=== PATIENT | female | born 1975 | race African-American/Black ===

== ENCOUNTER 2017-09-24 04:29 | Emergency (ER) | payer OTHER ==
[2017-09-24 04:40] VITALS: BP 116/81
--- NOTE | 2017-09-24 05:34 | ER Document Report ---
ED General - General Mode of Arrival: Ambulatory Information source: Patient TRAVEL OUTSIDE OF THE [place] IN LAST 30 DAYS: No - General Chief Complaint: Shoulder Pain Stated Complaint: NECK AND SHOULDER PAIN Time Seen by Provider: 09/24/17 05:10 Notes: Patient is a 41 year old female who is currently 11 weeks with a history of carpal tunnel presents to the emergency department complaining of right sided pain onset 5 days ago worsening last night. Patient states the pain starts on the right side of her neck and goes into her right arm which she describes as sharp. Patient also expressed some concern for her . Patient denies abdominal pain, vomiting, chest pain, trouble breathing, any recent trauma or injury, numbness or weakness. Patient is current . (JORGE IGLESIAS) - Related Data Allergies/Adverse Reactions: No Known Allergies Allergy (Verified 09/24/17 04:40) Past Medical History - General Information source: Patient - Social History Smoking Status: Never Smoker Cigarette use (# per day): No Smoking Education Provided: No Frequency of alcohol use: None Drug Abuse: None Family History: Reviewed & Not Pertinent Review of Systems - Review of Systems Constitutional: No symptoms reported EENT: No symptoms reported Cardiovascular: No symptoms reported Respiratory: No symptoms reported Gastrointestinal: No symptoms reported Genitourinary: No symptoms reported Female Genitourinary: No symptoms reported Musculoskeletal: See HPI Skin: No symptoms reported Hematologic/Lymphatic: No symptoms reported Neurological/Psychological: No symptoms reported -: Yes All other systems reviewed and negative Physical Exam - Vital signs Vitals: Temp Pulse Resp BP Pulse Ox 98.5 F 89 18 116/81 99 09/24/17 04:32 09/24/17 04:32 09/24/17 04:32 09/24/17 04:32 09/24/17 04:32 - Notes Notes: GENERAL: Alert, interacts well. No acute distress. HEAD: Normocephalic, atraumatic. EYES: Pupils equal, round, and reactive to light. Extraocular movements intact. ENT: Oral mucosa moist, tongue midline. NECK: Full range of motion. Supple. Trachea midline. LUNGS: Clear to auscultation bilaterally, no wheezes, rales, or rhonchi. No respiratory distress. HEART: Regular rate and rhythm. No murmurs, gallops, or rubs. ABDOMEN: Soft, non-tender. Non-distended. Bowel sounds present in all 4 quadrants. Bedside ultrasound performed, intrauterine confirmed. EXTREMITIES: Tender to plaption to the right trapezius. Negative supraspinatus test. Moves all 4 extremities spontaneously. N NEUROLOGICAL: Alert and oriented x3. Normal speech. PSYCH: Normal affect, normal mood. SKIN: Warm, dry, normal turgor. No rashes or lesions noted. (JORGE IGLESIAS) No numbness tingling or weakness on the right upper extremity. No tingling with elevation of the upper extremities, negative Phalen's test. Full range of motion of the right upper extremity. (JASON MCCOY) Course - Re-evaluation Re-evalutation: 09/24/17 05:48 No sign of acute nerve impingement, no evidence of double crush syndrome. No evidence of cervical radiculopathy. Patient appears to have muscle spasm of the trapezius, this is reproducible on examination. Patient has no history of trauma. Patient will be started on Valium as a muscle relaxer and discharged to home. I do not suspect ectopic or ruptured ectopic or any other acute intra- abdominal process that would be causing right shoulder pain. Abdomen is nontender, bedside ultrasound shows a single intrauterine that is active with a normal heartbeat approximately 160 bpm. No free fluid, no fluid in the cul-de-sac. Discharged to home. (JASON MCCOY) - Vital Signs Vital signs: Temp Pulse Resp BP Pulse Ox 98.5 F 89 18 116/81 99 09/24/17 04:32 09/24/17 04:32 09/24/17 04:32 09/24/17 04:32 09/24/17 04:32 Discharge - Discharge Clinical Impression: Strain of cervical portion of right trapezius muscle, First trimester Condition: Stable Disposition: HOME, SELF-CARE Additional Instructions: Your pain appears to be coming from a muscle spasm in your neck. I have prescribed you a muscle relaxer called Valium. It can make you quite sleepy. Please do not take it while driving. Today the bedside ultrasound showed a healthy with no signs of bleeding. If you develop bleeding, pain in your abdomen, increasing pain in your neck, any chest pain or shortness of breath or still have significant pain in 3 days, please return to the ED. Prescriptions: Diazepam [Valium 5 mg Tablet] 5 mg PO QIDP PRN #7 tablet PRN Reason: Referrals: LAURA CARTER MD [COMMUNITY BASED STAFF] - Follow up in 3-5 days Scribe Attestation: 09/24/17 06:49 I personally performed the services described in the documentation, reviewed and edited the documentation which was dictated to the scribe in my presence, and it accurately records my words and actions. (JASON MCCOY) Scribe Documentation - Scribe Written by Pedro:: Pedro Monge, 09/24/2017 05:37 acting as scribe for :: Juan M
== END 2017-09-24 06:05 | disposition home or self-care (01) ==
LOC: ER 04:29
DX: O26.91 Pregnancy related conditions, unspecified, first trimester (principal); S16.1XXA Strain of muscle, fascia and tendon at neck level, initial encounter; M25.511 Pain in right shoulder; X58.XXXA Exposure to other specified factors, initial encounter; Z3A.11 11 weeks gestation of pregnancy
CPT/HCPCS: 99283

== ENCOUNTER 2018-04-01 14:26 | Outpatient (CLI) | payer OTHER ==
[2018-04-01] MEDS ORDERED: ACETAMINOPHEN 325 MG TABLET PO PRN (14:42)
[2018-04-01 15:18] LABS: HEMATOCRIT 37.4 % (36.0-47.0); HEMOGLOBIN 12.1 g/dL (12.0-15.5); MEAN CORPUSCULAR HEMOGLOBIN 25.4 pg (27.0-33.4); MEAN CORPUSCULAR HGB CONC 32.3 g/dL (32.0-36.0); MEAN CORPUSCULAR VOLUME 79 fl (80-97); PLATELET COUNT 180 10^3/uL (150-450); RED BLOOD COUNT 4.76 10^6/uL (3.72-5.28); WHITE BLOOD COUNT 9.3 10^3/uL (4.0-10.5)
--- NOTE | 2018-04-01 15:19 | Non Stress Test Report ---
Non Stress Test Datetime Report Generated by CPN: 04/01/2018 15:19 DEMOGRAPHIC Test Number: 1 EGA NST: 37.4 INDICATION Indication for Study: Ordered by Provider MONITORING Monitor Explained: Monitor Explained; Test Explained; Patient Verbalized Understanding Time on Monitor: 04/01/2018 11:01 Time off Monitor: 04/01/2018 15:14 NST Duration: 253 NST INTERVENTIONS NST Interventions: PO Hydration; Reposition Patient Physician Notified NST: NSilvana Henriquez, CNM BABY A: [id number] BABY A Movement : Present Contraction Frequency : 0 FHR Baseline : 125 Accelerations : 15X15 Decelerations : None Variability : Moderate 6-25bpm NST Review: Meets Criteria for Reactive NST NST Review and Verified By : Tiffanie Enriquezavagabi RN NST Results: Reactive NST REPORT Report Trigger: Send Report
[2018-04-01 15:40] LABS: ALANINE AMINOTRANSFERASE 18 U/L (9-52); ALBUMIN 3.4 g/dL (3.5-5.0); ALKALINE PHOSPHATASE 140 U/L (38-126); ANION GAP 11 (5-19); ASPARTATE AMINO TRANSFERASE 23 U/L (14-36); BILIRUBIN,DIRECT 0.2 mg/dL (0.0-0.4); BILIRUBIN,TOTAL 0.2 mg/dL (0.2-1.3); BLOOD UREA NITROGEN 7 mg/dL (7-20); CALCIUM 9.2 mg/dL (8.4-10.2); CARBON DIOXIDE 21 mmol/L (22-30); CHLORIDE 104 mmol/L (98-107); GLUCOSE 75 mg/dL (75-110); POTASSIUM 4.6 mmol/L (3.6-5.0); SODIUM 136.3 mmol/L (137-145); TOTAL PROTEIN 6.6 g/dL (6.3-8.2); URIC ACID 5.4 mg/dL (2.5-7.0)
[2018-04-01 15:50] LABS: APPEARANCE,URINE SLIGHTLY-CLOUDY; BILIRUBIN,URINE NEGATIVE (NEGATIVE); COLOR,URINE YELLOW; GLUCOSE, URINE NEGATIVE (NEGATIVE); KETONES,URINE NEGATIVE (NEGATIVE); LEUKOCYTE ESTERASE,URINE NEGATIVE (NEGATIVE); NITRITE,URINE NEGATIVE (NEGATIVE); PROTEIN,URINE NEGATIVE (NEGATIVE); URINE SPECIFIC GRAVITY 1.019; UROBILINOGEN,URINE NEGATIVE mg/dL (<2.0)
[2018-04-01 16:10] LABS: URINE AMPHETAMINES SCREEN NEGATIVE; URINE BARBITURATES SCREEN NEGATIVE; URINE BENZODIAZEPINES SCREEN NEGATIVE; URINE COCAINE SCREEN NEGATIVE; URINE MARIJUANA (THC) SCREEN NEGATIVE; URINE METHADONE SCREEN NEGATIVE; URINE PHENCYCLIDINE SCREEN NEGATIVE
[2018-04-01 16:14] LABS: UR PRO/CREAT RATIO RESULT 0.1 mg/mg (0.0-0.2); URINE CREATININE 135.3 mg/dL (15-278); URINE PROTEIN 7.6 mg/dL (<12)
== END 2018-04-01 16:16 | disposition home or self-care (01) ==
LOC: LC 14:26
PROVIDERS: ATTEND Student in an Organized Health Care Education/Training Program
PROC: 4A1HXCZ Monitoring of Products of Conception, Cardiac Rate, External Approach (ICD-10-PCS; principal; 2018-04-01)
DX: O14.93 Unspecified pre-eclampsia, third trimester (principal); Z3A.37 37 weeks gestation of pregnancy
CPT/HCPCS: 36415; 59025; 80053; 80307; 81001; 82570; 83615; 84156; 84550; 85027

== ENCOUNTER 2018-04-05 16:52 | Outpatient (CLI) | payer OTHER ==
--- NOTE | 2018-04-05 17:09 | L&D Progress Notes ---
PROGRESS NOTES Datetime Report Generated by CPN: 04/05/2018 17:09 PROGRESS NOTE Impression: Reassuring Heart Rate Procedures- Other: r/o GHTN Plan: Continue Present Management Vital Signs : Reviewed; Within Normal Limits Vital Signs Comments: Normal labs today. pt sent home and will do a 24 hour urine there. NST on Comment: Pt sent over from the office for GHTN work up. with hx of . Doing well today, no complaints, Cat 1 NST today. +FM. Will d/c home and pt to do a 24hour urine. Dr Almeida aware of pt status and agrees with plan of care. FETUS A Monitoring: External US FHR Category: Category I SIGNATURE SIGNATURE: [id number] SIGNATURE: [id number] Assignment: Hillary Almeida MD Signature: with User ID: [email or web address] : with User ID: [email or web address]
== END 2018-04-05 17:40 | disposition home or self-care (01) ==
LOC: LC 16:52
PROVIDERS: ATTEND Obstetrics & Gynecology
PROC: 4A1HXCZ Monitoring of Products of Conception, Cardiac Rate, External Approach (ICD-10-PCS; principal; 2018-04-05)
DX: Z34.93 Encounter for supervision of normal pregnancy, unspecified, third trimester (principal)
CPT/HCPCS: 59025

== ENCOUNTER 2018-04-09 10:30 | Outpatient (CLI) | payer OTHER ==
--- NOTE | 2018-04-09 10:37 | Non Stress Test Report ---
Non Stress Test Datetime Report Generated by CPN: 04/09/2018 10:36 DEMOGRAPHIC EGA NST: 38.1 INDICATION Indication for Study: Ordered by Provider MONITORING Monitor Explained: Monitor Explained; Test Explained; Patient Verbalized Understanding Monitor Explained: Monitor Explained; Test Explained; Patient Verbalized Understanding Time on Monitor: 04/05/2018 17:08 Time off Monitor: 04/05/2018 17:37 NST Duration: 29 NST INTERVENTIONS NST Interventions: PO Hydration; Reposition Patient NST Interventions: PO Hydration; Reposition Patient Physician Notified NST: Dr Bishnu BABY A: [id number] BABY A Movement : Present Contraction Frequency : none FHR Baseline : 130 Accelerations : 15X15 Decelerations : None Variability : Moderate 6-25bpm NST Review: Meets Criteria for Reactive NST NST Review and Verified By : Ashvin Stanton RN NST Results: Reactive NST REPORT Report Trigger: Send Report
[2018-04-09 12:30] LABS: ABSOLUTE EOSINOPHILS # (AUTO) 0.1 10^3/uL (0.0-0.6); ABSOLUTE LYMPHOCYTES (AUTO) 2.3 10^3/uL (0.5-4.7); ABSOLUTE MONOCYTES (AUTO) 0.9 10^3/uL (0.1-1.4); ABSOLUTE NEUT (AUTO) 6.9 10^3/uL (1.7-8.2); BASOPHILS % (AUTO) 0.1 % (0-2); EOSINOPHILS % (AUTO) 0.9 % (0-6); HEMATOCRIT 39.7 % (36.0-47.0); HEMOGLOBIN 12.8 g/dL (12.0-15.5); LYMPHOCYTES % (AUTO) 22.5 % (13-45); MEAN CORPUSCULAR HEMOGLOBIN 25.4 pg (27.0-33.4); MEAN CORPUSCULAR HGB CONC 32.3 g/dL (32.0-36.0); MEAN CORPUSCULAR VOLUME 79 fl (80-97); MONOCYTES % (AUTO) 8.9 % (3-13); PLATELET COUNT 194 10^3/uL (150-450); RED BLOOD COUNT 5.05 10^6/uL (3.72-5.28); RED CELL DISTRIBUTION WIDTH 17.4 % (11.5-14.0); SEGMENTED NEUTROPHILS % (AUTO) 67.6 % (42-78); TOTAL CELLS COUNTED % (AUTO) 100 %; WHITE BLOOD COUNT 10.2 10^3/uL (4.0-10.5)
[2018-04-09 12:36] LABS: APPEARANCE,URINE SLIGHTLY-CLOUDY; BILIRUBIN,URINE NEGATIVE (NEGATIVE); COLOR,URINE YELLOW; GLUCOSE, URINE NEGATIVE (NEGATIVE); KETONES,URINE NEGATIVE (NEGATIVE); LEUKOCYTE ESTERASE,URINE NEGATIVE (NEGATIVE); NITRITE,URINE NEGATIVE (NEGATIVE); PROTEIN,URINE NEGATIVE (NEGATIVE); URINE SPECIFIC GRAVITY 1.015; UROBILINOGEN,URINE NEGATIVE mg/dL (<2.0)
[2018-04-09 12:53] LABS: URINE AMPHETAMINES SCREEN NEGATIVE; URINE BARBITURATES SCREEN NEGATIVE; URINE BENZODIAZEPINES SCREEN NEGATIVE; URINE COCAINE SCREEN NEGATIVE; URINE MARIJUANA (THC) SCREEN NEGATIVE; URINE METHADONE SCREEN NEGATIVE; URINE PHENCYCLIDINE SCREEN NEGATIVE
[2018-04-09 12:58] LABS: ALANINE AMINOTRANSFERASE 21 U/L (9-52); ALBUMIN 3.5 g/dL (3.5-5.0); ALKALINE PHOSPHATASE 139 U/L (38-126); ANION GAP 10 (5-19); ASPARTATE AMINO TRANSFERASE 19 U/L (14-36); BILIRUBIN,DIRECT 0.2 mg/dL (0.0-0.4); BILIRUBIN,TOTAL 0.3 mg/dL (0.2-1.3); BLOOD UREA NITROGEN 9 mg/dL (7-20); CALCIUM 9.3 mg/dL (8.4-10.2); CARBON DIOXIDE 23 mmol/L (22-30); CHLORIDE 104 mmol/L (98-107); GLUCOSE 44 mg/dL (75-110); POTASSIUM 4.5 mmol/L (3.6-5.0); SODIUM 136.9 mmol/L (137-145); TOTAL PROTEIN 6.8 g/dL (6.3-8.2); URIC ACID 5.5 mg/dL (2.5-7.0)
[2018-04-09 13:02] LABS: UR PRO/CREAT RATIO RESULT 0.1 mg/mg (0.0-0.2); URINE CREATININE 114.2 mg/dL (15-278); URINE PROTEIN 11.3 mg/dL (<12)
[2018-04-09] MEDS ORDERED: ACETAMINOPHEN 325 MG TABLET PO PRN (13:55)
[2018-04-09] MEDS ORDERED: ACETAMINOPHEN 325 MG TABLET ONE (13:59)
== END 2018-04-09 14:52 | disposition home or self-care (01) ==
LOC: LC 10:30
PROVIDERS: ATTEND Student in an Organized Health Care Education/Training Program
PROC: 4A1HXCZ Monitoring of Products of Conception, Cardiac Rate, External Approach (ICD-10-PCS; principal; 2018-04-09)
DX: O13.3 Gestational [pregnancy-induced] hypertension without significant proteinuria, third trimester (principal); O09.523 Supervision of elderly multigravida, third trimester; Z3A.38 38 weeks gestation of pregnancy
CPT/HCPCS: 36415; 59025; 80053; 80307; 81001; 82570; 83615; 84156; 84550; 85025

== ENCOUNTER 2018-04-11 22:20 | Inpatient (IN) | payer OTHER ==
[2018-04-11] MEDS ORDERED: RINGERS SOLUTION,LACTATED 1,000 ML IV PRN (22:45)
[2018-04-11] MEDS ORDERED: DINOPROSTONE 10 MG VAGINAL INSERT.SR PV PRN (22:45)
[2018-04-11] MEDS ORDERED: MAG HYDROX/AL HYDROX/SIMETH SUSP 30 ML UDCUP PO PRN (22:46)
[2018-04-11] MEDS ORDERED: RINGERS SOLUTION,LACTATED 300 ML IV ONE (23:00)
[2018-04-11] MEDS ORDERED: ZOLPIDEM TARTRATE 5 MG TABLET PO ONE (23:00)
[2018-04-11 23:37] LABS: ABSOLUTE EOSINOPHILS # (AUTO) 0.1 10^3/uL (0.0-0.6); ABSOLUTE LYMPHOCYTES (AUTO) 2.9 10^3/uL (0.5-4.7); ABSOLUTE MONOCYTES (AUTO) 1.1 10^3/uL (0.1-1.4); ABSOLUTE NEUT (AUTO) 6.9 10^3/uL (1.7-8.2); BASOPHILS % (AUTO) 0.3 % (0-2); EOSINOPHILS % (AUTO) 0.8 % (0-6); HEMATOCRIT 37.5 % (36.0-47.0); HEMOGLOBIN 12.2 g/dL (12.0-15.5); LYMPHOCYTES % (AUTO) 26.1 % (13-45); MEAN CORPUSCULAR HEMOGLOBIN 25.6 pg (27.0-33.4); MEAN CORPUSCULAR HGB CONC 32.5 g/dL (32.0-36.0); MEAN CORPUSCULAR VOLUME 79 fl (80-97); PLATELET COUNT 181 10^3/uL (150-450); RED BLOOD COUNT 4.76 10^6/uL (3.72-5.28); SEGMENTED NEUTROPHILS % (AUTO) 62.8 % (42-78); TOTAL CELLS COUNTED % (AUTO) 100 %
[2018-04-11 23:41] LABS: APPEARANCE,URINE SLIGHTLY-CLOUDY; BILIRUBIN,URINE NEGATIVE (NEGATIVE); COLOR,URINE YELLOW; GLUCOSE, URINE NEGATIVE (NEGATIVE); KETONES,URINE NEGATIVE (NEGATIVE); LEUKOCYTE ESTERASE,URINE TRACE (NEGATIVE); NITRITE,URINE NEGATIVE (NEGATIVE); PROTEIN,URINE NEGATIVE (NEGATIVE); URINE SPECIFIC GRAVITY 1.009; UROBILINOGEN,URINE NEGATIVE mg/dL (<2.0)
[2018-04-11 23:50] LABS: ALANINE AMINOTRANSFERASE 19 U/L (9-52); ALBUMIN 3.3 g/dL (3.5-5.0); ALKALINE PHOSPHATASE 150 U/L (38-126); ANION GAP 9 (5-19); ASPARTATE AMINO TRANSFERASE 18 U/L (14-36); BILIRUBIN,DIRECT 0.1 mg/dL (0.0-0.4); BILIRUBIN,TOTAL 0.3 mg/dL (0.2-1.3); BLOOD UREA NITROGEN 9 mg/dL (7-20); CALCIUM 9.7 mg/dL (8.4-10.2); CARBON DIOXIDE 20 mmol/L (22-30); CHLORIDE 107 mmol/L (98-107); GLUCOSE 78 mg/dL (75-110); POTASSIUM 4.4 mmol/L (3.6-5.0); SODIUM 135.7 mmol/L (137-145); TOTAL PROTEIN 6.4 g/dL (6.3-8.2); URIC ACID 5.5 mg/dL (2.5-7.0)
[2018-04-12 00:02] LABS: URINE AMPHETAMINES SCREEN NEGATIVE; URINE BARBITURATES SCREEN NEGATIVE; URINE BENZODIAZEPINES SCREEN NEGATIVE; URINE COCAINE SCREEN NEGATIVE; URINE MARIJUANA (THC) SCREEN NEGATIVE; URINE METHADONE SCREEN NEGATIVE; URINE PHENCYCLIDINE SCREEN NEGATIVE
[2018-04-12 00:06] LABS: UR PRO/CREAT RATIO RESULT 0.2 mg/mg (0.0-0.2); URINE CREATININE 77.1 mg/dL (15-278); URINE PROTEIN 11.9 mg/dL (<12)
[2018-04-12] MEDS ORDERED: DINOPROSTONE 10 MG VAGINAL INSERT.SR ONE (00:14)
[2018-04-12] MEDS ORDERED: ACETAMINOPHEN 325 MG TABLET ONE ×2 (03:06→20:53)
[2018-04-12] MEDS: ACETAMINOPHEN 325 MG TABLET PO PRN (03:10)
--- NOTE | 2018-04-12 06:22 | Admission Physical ---
Datetime Report Generated by CPN: 04/12/2018 06:21 CURRENT ADMISSION Chief Complaint: Scheduled Induction of Labor Indication for Induction: Gestational HTN Admit Impression : Induction of Labor Admit Plan: Admit to Unit; Initiate Labor Induction Protocol ALLERGIES Medication Allergies: No Medication Allergies: No Known Allergies (04/11/2018) Latex: No Latex Allergies OBSTETRICAL HISTORY EDC: 04/18/2018 00:00 : 3 Para: 1 Term: 1 : 0 SAB: 1 IAB: 0 Ectopic: 0 Livin Cesareans: 0 VBACs: 0 Multiple Births: 0 Gestational Diabetes: No Rh Sensitization: No Incompetent Cervix: No DONNY: No Infertility: No ART Treatment: No Uterine Anomaly: No IUGR: No Hx Previous C/S: No Macrosomia: No Hx Loss/Stillborn: No PIH: Yes Hx : No Placenta Previa/Abruption: No Depression/PP Depression: No PTL/PROM: No Post Hemorrhage: No Current Procedures: Ultrasound; NST Obstetrical History Comments: G1-06/26/06 female G2-2014 SAB G3-Current SEE RECORDS Alcohol: No Marijuana : No Cocaine: No Other Illicit Drugs: No Cigarettes: Former Smoker. [id number] MEDICAL HISTORY Diabetes: No Blood Transfusion: No Pulmonary Disease (Asthma, TB): Yes Breast Disease: Yes Hypertension: No Certified Physician'S Assistant Surgery: No Heart Disease: No Hosp/Surgery: Yes Autoimmune Disorder: No Anesthetic Complications: No Kidney Disease: No Abnormal Pap Smear: No Neuro/Epilepsy: No Psychiatric Disorders: Yes Other Medical Diseases: No Hepatitis/Liver Disease: No Significant Family History: No Varicosities/Phlebitis: No Trauma/Violence : No Thyroid Dysfunction: No Medical History Comments: PTSD being treated; Anxiety; breast reduction; previous Vag ; depression; TB carier - treated INFECTIOUS HISTORY Gonorrhea: No Genital Herpes: No Chlamydia: No Tuberculosis: Yes Syphilis: No Hepatitis: No HIV/AIDS Exposure: No Rash or Viral Illness: No HPV: No Infectious History Comments: TB carrier - treated 2000 PHYSICAL EXAM General: Normal HEENT: Normal Neurologic: Normal Thyroid: Normal Heart: Normal Lungs: Normal Breast: Deferred Back: Normal Abdomen: Normal Genitourinary Exam: Normal Extremities: Normal DTRs: Normal Pelvic Type: Adequate Vital Signs: Reviewed VAGINAL EXAM Dilatation: 1 Effacement: 0 Station: -2 MEMBRANES Membranes: Intact FETUS A EGA: 39.1 Monitoring: External US FHR- Baseline: 140 Presentation: Vertex Admit Comment: Induction for AMA, Htn PLANS FOR LABOR AND DELIVERY Labor and Delivery: None Pain Management: Epidural Feeding Preference: Formula Benefit of Breast Feed Discussed: Yes Circumcision: N/A INFORMED CONSENT Signature: with User ID: [email or web address]
[2018-04-12] MEDS ORDERED: OXYTOCIN/NORMAL SALINE 20 UNIT/1,000 ML RTUINJ ONE ×2 (08:32→20:54)
[2018-04-12] MEDS: OXYTOCIN/NORMAL SALINE 20 UNIT/1,000 ML RTUINJ IV PRN ×3 (09:34→21:33)
[2018-04-12] MEDS ORDERED: FENTANYL CITRATE INJ/PF 100 MCG/2 ML AMPUL IV ONE (10:45)
[2018-04-12] MEDS ORDERED: FENTANYL CITRATE INJ/PF 100 MCG/2 ML AMPUL ONE ×2 (10:57→14:39)
[2018-04-12] MEDS ORDERED: FENTANYL/BUPIVACAINE/NS/PF 200 MCG/100 ML RTUINJ EPI ONE ×2 (13:52→23:13)
[2018-04-12] MEDS ORDERED: EPHEDRINE SULFATE INJ 50 MG/1 ML AMPULE ONE (13:52)
[2018-04-12] MEDS ORDERED: PHENYLEPHRINE HCL INJ/PF 10 MG/1 ML SDV ONE (13:54)
[2018-04-12] MEDS ORDERED: BUPIVACAINE HCL 0.5 % INJ/PF 30 ML SDV ONE (13:55)
[2018-04-12] MEDS ORDERED: LIDOCAINE 1% INJ-PF (10 MG/ML) 30 ML SDV ONE (20:54)
[2018-04-12] MEDS ORDERED: MISOPROSTOL 0.2 MG TABLET ONE (20:54)
[2018-04-12] MEDS ORDERED: ACETAMINOPHEN 325 MG TABLET PO ONE (22:00)
[2018-04-13] MEDS ORDERED: AMPICILLIN SOD INJ 2 GM VIAL ONE ×3 (01:05→12:45)
[2018-04-13] MEDS ORDERED: AMPICILLIN SOD INJ 2 GM VIAL IM ONE (01:30)
[2018-04-13] MEDS ORDERED: ACETAMINOPHEN 325 MG TABLET ONE ×3 (03:47→14:42)
[2018-04-13] MEDS ORDERED: ACETAMINOPHEN 325 MG TABLET PO ONE (04:15)
[2018-04-13] MEDS ORDERED: AMPICILLIN SOD INJ 2 GM VIAL IM SCH (06:00)
[2018-04-13] MEDS ORDERED: DEXTROSE 5%-LACTATED RINGERS 1,000 ML IV PRN (06:00)
[2018-04-13] MEDS ORDERED: OXYTOCIN/NORMAL SALINE 0 UNIT/0 ML RTUINJ ONE (08:01)
[2018-04-13] MEDS ORDERED: FENTANYL/BUPIVACAINE/NS/PF 200 MCG/100 ML RTUINJ EPI ONE (08:11)
[2018-04-13] MEDS: OXYTOCIN/NORMAL SALINE 20 UNIT/1,000 ML RTUINJ IV PRN (08:14)
[2018-04-13] MEDS: ZOLPIDEM TARTRATE 5 MG TABLET PO SCH (08:48)
[2018-04-13] MEDS ORDERED: ACETAMINOPHEN 325 MG TABLET PO PRN (08:52)
[2018-04-13] MEDS: ACETAMINOPHEN 325 MG TABLET PO PRN (09:08)
[2018-04-13] MEDS ORDERED: GENTAMICIN SULFATE 180 MG in DEXTROSE 5%-WATER 100 ML IV ONE (09:30)
--- NOTE | 2018-04-13 10:08 | L&D Progress Notes ---
PROGRESS NOTES Datetime Report Generated by CPN: 04/13/2018 10:08 PROGRESS NOTE Impression: Arrest of Dilatation/Descent Plan Other: resume pitocin, temp 100.2. plan on tylenol and start on gent Vital Signs : Reviewed Comment: clear/bloody fluid recheck remains 6 cm dilated ROT presentation resume pitocin tylenol for low grade temperature gentamicin - dose per pharmacy discussed with patient 6 cm dilation consideration for primary c section if arrest of dilation - patient agrees. VAGINAL EXAM Dilatation: 6 Dilatation: 1 Effacement: 80 Effacement: 0 Station: -2 Station: -2 MEMBRANES Pooling: Positive Membranes: Ruptured Membranes: Intact Amniotic Fluid Color: Bloody FETUS A FHR - Baseline: 145 Monitoring: External US Accelerations: 15X15 Decelerations: Variable FHR Category: Category I FHR Comments: overall reassuring : 39.2 : 39.0 Estimated Weight (gm): 3000 Presentation: Vertex SIGNATURE SIGNATURE: [id number];[id number];[id number] SIGNATURE: [id number];[id number];[id number] SIGNATURE: [id number];[id number] Signature: with User ID: [email or web address]
[2018-04-13] MEDS: AMPICILLIN SOD INJ 2 GM VIAL IV SCH ×2 (13:05→18:35)
[2018-04-13] MEDS ORDERED: ZOLPIDEM TARTRATE 5 MG TABLET PO PRN (14:22)
[2018-04-13] MEDS ORDERED: DIPHENHYDRAMINE HCL 25 MG CAPSULE PO PRN (14:22)
[2018-04-13] MEDS ORDERED: ACETAMINOPHEN 650 MG SUPP.RECT PR PRN (14:22)
[2018-04-13] MEDS ORDERED: PSEUDOEPHEDRINE HCL 30 MG TABLET PO PRN (14:22)
[2018-04-13] MEDS ORDERED: ACETAMINOPHEN WITH CODEINE #3 TABLET PO PRN (14:22)
[2018-04-13] MEDS ORDERED: OXYTOCIN/NORMAL SALINE 20 UNIT/1,000 ML RTUINJ IV PRN (14:22)
[2018-04-13] MEDS ORDERED: PROMETHAZINE HCL 25 MG SUPP.RECT PR PRN (14:22)
[2018-04-13] MEDS ORDERED: MEASLES,MUMPS&RUBELLA VACC/PF 0.5 ML VIAL SUBCUT PRN (14:22)
[2018-04-13] MEDS ORDERED: GLYCERIN/WITCH HAZEL LEAF 1 EACH MED..PAD TP PRN (14:22)
[2018-04-13] MEDS ORDERED: PROMETHAZINE HCL 25 MG TABLET PO PRN (14:22)
[2018-04-13] MEDS ORDERED: PROMETHAZINE HCL INJ 25 MG/1 ML VIAL IV PRN (14:22)
[2018-04-13] MEDS ORDERED: MAGNESIUM HYDROXIDE SUSP 30 ML UDCUP PO PRN (14:22)
[2018-04-13] MEDS ORDERED: NA PHOS,M-B/NA PHOS,DI-BA (ADULT) 133 ML ENEMA PR PRN (14:22)
[2018-04-13] MEDS ORDERED: DIPH/PERTUSS(ACELL)/TETANUS VAC/PF 0.5 ML SYR (>=10YO) IM PRN (14:22)
[2018-04-13] MEDS ORDERED: BENZOCAINE/MENTHOL AEROSOL SPRAY 56 ML TOP PRN (14:22)
[2018-04-13] MEDS ORDERED: DIBUCAINE 1% OINTMENT 28 GM TP PRN (14:22)
--- NOTE | 2018-04-13 14:28 | PDOC DELIVERY SUMMARY ---
Delivery Summary - Maternal Hx : III Hx Para: I Hx # Term Pregnancies: 0 Hx # Pregnancies: 1 Hx Total # of Abortions (Sponateous & Elective): 1 Number of Living Children: 1 MINESH: 04/18/18 Gestational Age: 39.2 Risk Factors: Induced HTN - Advanced maternal age. Intrapartum: Febrile Ruptured Membranes: SROM Time of Rupture: 14:10 Fluids: Meconium Stained - Delivery Labor: Induction Presentation: Vertex Heart Rate Monitoring: Externally Uterine Contraction Monitoring: External Pattern: Variable Decels Support Person Present: Yes Location: LD Placenta: Within Normal Limits Placenta Description: 3 vessel cord Number of Vessels (Cord): 3 Nuchal Cord: Yes - leg cord x 2 loose Delivery of Placenta Date: 04/13/18 Delivery of Placenta Time: 14:30 Estimated Blood Loss: 200 ml Delivery Quantitative Blood Loss (QBL): 200 Delivery QBL Comment: weight, apgars pending per resuscitation staff - please see delivery summary from - Medications Type of Anesthesia:: Epidural - Intrapartum Medications Intrapartum Medications: tylenol, ampicillin, gentamicin for maternal pyrexia, tachycradia, chorioamnionitis - Delivery Personnel MD: JUNIOR SUMNER
[2018-04-13] MEDS ORDERED: IBUPROFEN 800 MG TABLET ONE (14:42)
[2018-04-13 15:08] LABS: ARTERIAL BLOOD BASE EXCESS -6.4 mmol/L; ARTERIAL BLOOD H2CO3 1.68 mmol/L (1.05-1.35); ARTERIAL BLOOD HCO3 22.1 mmol/L (20-26); ARTERIAL BLOOD O2 SATURATION 15.7 % (94-98); ARTERIAL BLOOD PCO2 55.9 mmHg (35-45); ARTERIAL BLOOD PH 7.21 (7.35-7.45); ARTERIAL BLOOD TOTAL CO2 23.8 mmol/L (21-25)
[2018-04-13 15:10] LABS: ARTERIAL BLOOD FIO2 CORDGAS
[2018-04-13 15:11] LABS: ARTERIAL BLOOD PO2 15.9 mmHg (80-100)
--- NOTE | 2018-04-13 15:30 | Warning Signs in Babies ---
VOD Warning Signs Datetime Report Generated by [facility]: 04/13/2018 15:30 VOD#[id number] -Warning Signs in Babies: Viewed with Parent(s)/Family (04/01/2018 14:41:Magi Glynn RN)
--- NOTE | 2018-04-13 17:17 | Delivery Summary ---
Del Sum A-C Datetime Report Generated by CPN: 04/13/2018 17:16 DELIVERY PERSONNEL DELIVERY PERSONNEL: [id number] Delivery Doctor:: Estela Parmar MD Labor and Delivery Nurse:: Magi Glynn RNdirector of head start Nurse:: Leyda Figueroa RN Multicraft Operator/PCAT INSTRUCTOR: Kathleen Mukherjee Additional Personnel: : Carmita Jeronimo RN MATERNAL INFORMATION Delivery Anesthesia: Epidural Medications After Delivery: Pitocin Bolus-Please Comment Estimated Blood Loss (ml): 200 Maternal Complications: Chorioamnionitis Other Maternal Complications: Maternal pyrexia, tachycardia. Meconium stained fluid. LABOR SUMMARY EDC: 04/18/2018 00:00 No. Babies in Womb: 1 Attempted: No Labor Anesthesia: Epidural LABOR INFORMATION Reason for Induction: Gestational Hypertension; Other Reason for Induction- Other: Advanced maternal age Onset of Labor: 04/12/2018 20:48 Complete Dilatation: 04/13/2018 13:40 Cervical Ripening Agents: Cervidil Other Ripening Agents: n/a Oxytocin: Induction Group B Beta Strep: Negative Antibiotics # of Doses: 4 Antibiotics Time of Last Dose: 1305 Name of Antibiotic Given: ampicillin and gentamicin Steroids Given: None Reason Steroids Not Administered: Not Applicable MEMBRANES Membranes Rupture Method: Artificial Rupture of Membranes: 04/12/2018 16:10 Length of Rupture (hr): 22.02 Amniotic Fluid Color: Clear Amniotic Fluid Amount: Scant Amniotic Fluid Odor: None STAGES OF LABOR Stage 1 hr: 16 Stage 1 min: 52 Stage 2 hr: 0 Stage 2 min: 31 Stage 3 hr: 0 Stage 3 min: 4 Total Time in Labor hr: 17 Total Time in Labor min: 27 VAGINAL DELIVERY Episiotomy: None Laceration #1: None Laceration Extension #1: N/A Laceration #2: None Laceration Extension #2: N/A Laceration #3: None Laceration Extension #3: N/A Other Laceration: n/a Laceration Repair: Not Applicable Initial Vag Sponge Count: n/a Final Vag Sponge Count: n/a Initial Vag Sharps Count: n/a Final Vag Sharps Count: n/a Sponge Count Correct: N/A; Vaginal Sweep Performed Sharps Count Correct: N/A CSECTION DELIVERY Primary Indication: N/A Other Primary Indication: n/a Secondary Indication: N/A Other Secondary Indication: n/a CSection Urgency: n/a CSection Incidence: N/A Labor: N/A Elective: N/A CSection Incision: N/A CSection Incision- Other: n/a Other Sterilization Procedure: n/a BABY A INFORMATION Infant Delivery Date/Time: 04/13/2018 14:11 Method of Delivery: Vaginal Born in Route : No : N/A Forceps: N/A Vacuum Extraction: N/A Shoulder Dystocia : No PRESENTATION/POSITION BABY A Presentation: Cephalic Cephalic Presentation: Vertex Vertex Position: Left Occipital Anterior Breech Presentation: N/A PLACENTA INFORMATION BABY A Placenta Delivery Time : 04/13/2018 14:15 Placenta Method of Delivery: Spontaneous Placenta Status: Delivered SCORES BABY A Heart Rate 1 min: >100 bpm Resp Effort 1 min: Good Cry Reflex Irritability 1 min: Cough or Sneeze or Pulls Away Muscle Tone 1 min: Some Flexion of Extremities Color 1 min: Body [place], Extremities Blue Resuscitation Effort 1 min: Tactile Stimulation SCORE 1 MIN: 8 Heart Rate 5 min: >100 bpm Resp Effort 5 min: Good Cry Reflex Irritability 5 min: Cough or Sneeze or Pulls Away Muscle Tone 5 min: Active Motion Color 5 min: Body [place], Extremities Blue SCORE 5 MIN: 9 INFORMATION BABY A Gestational Age at Delivery: 39.2 Gestational Status: Full Term- 39- 40.6 Weeks Outcome : Liveborn Condition : Stable Infant Sex: Female IDENTIFICATION BABY A Infant Verification Date/Time: 04/13/2018 14:45 ID Band Number: [id number] Mother's Name Verified: Yes Infant RN Verifying Infant: Kary Crenshaw RN Additional Verifying Personnel: DanaSilvana Renard RN WEIGHT/LENGTH BABY A Infant Birthweight (gm): 2653 Infant Weight (lb): 5 Infant Weight (oz): 14 Length (in): 19.00 Infant Length (cm): 48.26 CORD INFORMATION BABY A No. Cord Vessels: 3 Nuchal Cord : N/A Nuchal Cord- Other: leg x 2 loose Cord Blood Taken: Yes-For Eval (Mom's Blood Type - or O+) Infant Suction: Mouth; Nose ASSESSMENT BABY A Complications: Meconium; Other Infant Complications- Other: tachycardia, meconium Physical Findings at Delivery: Within Normal Limits Infant Respirations: Appears Normal Skin to Skin: Yes Skin to Skin Time (min): 45 Corporate Development Manager/ALS Called : No Care By: Elissa Jeronimo RN Transferred To: Nursery BABY B INFORMATION : N/A SIGNATURES Signature: with User ID: [email or web address]
[2018-04-13] MEDS: FERROUS SULFATE 325 MG TABLET PO SCH (17:47)
[2018-04-13] MEDS: DOCUSATE SODIUM 100 MG CAPSULE PO SCH (17:47)
[2018-04-13] MEDS ORDERED: AMPICILLIN SOD INJ 2 GM VIAL IV PRN (18:00)
[2018-04-13] MEDS ORDERED: AMPICILLIN SOD INJ 1 GM VIAL ONE (18:07)
[2018-04-13] MEDS ORDERED: GENTAMICIN SULFATE INJ 80 MG/2 ML VIAL ONE ×2 (18:40)
[2018-04-13] MEDS ORDERED: GENTAMICIN SULFATE/PF INJ 20 MG/2 ML VIAL ONE (18:42)
[2018-04-13] MEDS: AMPICILLIN SODIUM 2 GM in NORMAL SALINE 100 ML IV SCH (18:54)
[2018-04-13] MEDS: GENTAMICIN SULFATE 140 MG in DEXTROSE 5%-WATER 100 ML IV SCH (22:03)
[2018-04-13] MEDS: IBUPROFEN 800 MG TABLET PO SCH (22:05)
[2018-04-13] MEDS: FAMOTIDINE 20 MG TABLET PO SCH (22:05)
[2018-04-14] MEDS ORDERED: AMPICILLIN SOD INJ 2 GM VIAL ONE ×2 (00:40→01:24)
[2018-04-14] MEDS: AMPICILLIN SODIUM 2 GM in NORMAL SALINE 100 ML IV SCH ×5 (00:55→23:35)
[2018-04-14] MEDS ORDERED: GENTAMICIN SULFATE/PF INJ 20 MG/2 ML VIAL ONE (01:26)
[2018-04-14] MEDS: ZOLPIDEM TARTRATE 5 MG TABLET PO SCH (02:21)
[2018-04-14] MEDS: GENTAMICIN SULFATE 140 MG in DEXTROSE 5%-WATER 100 ML IV SCH ×3 (02:32→17:02)
[2018-04-14] MEDS: ACETAMINOPHEN WITH CODEINE #3 TABLET PO PRN ×2 (03:27→17:04)
[2018-04-14] MEDS: IBUPROFEN 800 MG TABLET PO SCH ×3 (06:07→21:04)
[2018-04-14 08:34] LABS: HEMATOCRIT 32.6 % (36.0-47.0); HEMOGLOBIN 10.7 g/dL (12.0-15.5); MEAN CORPUSCULAR HEMOGLOBIN 25.6 pg (27.0-33.4); MEAN CORPUSCULAR HGB CONC 32.8 g/dL (32.0-36.0); MEAN CORPUSCULAR VOLUME 78 fl (80-97); PLATELET COUNT 156 10^3/uL (150-450); RED BLOOD COUNT 4.17 10^6/uL (3.72-5.28)
[2018-04-14 09:20] LABS: WHITE BLOOD COUNT 23.3 10^3/uL (4.0-10.5)
[2018-04-14] MEDS: FERROUS SULFATE 325 MG TABLET PO SCH ×2 (10:04→17:02)
[2018-04-14] MEDS: FAMOTIDINE 20 MG TABLET PO SCH ×2 (10:04→21:04)
[2018-04-14] MEDS: SENNOSIDES/DOCUSATE 8.6-50 MG 1 EACH TABLET PO SCH (10:04)
[2018-04-14] MEDS: DOCUSATE SODIUM 100 MG CAPSULE PO SCH ×2 (10:04→17:02)
[2018-04-14] MEDS: PRENATAL VITAMIN W DHA CAPSULE PO SCH (10:04)
--- NOTE | 2018-04-14 11:24 | PDOC PROGRESS REPORT ---
Subjective-OB Progress Note for:: 04/14/18 Subjective: reports bleeding slowing, pain controlled with current meds. IV infiltrated into hand (mild), RN has D/C'd IV and is starting new one Physical Exam (OB) Vital Signs: Temp Pulse Resp BP Pulse Ox 97.5 F 75 16 109/65 99 04/14/18 07:22 04/14/18 07:22 04/14/18 07:22 04/14/18 07:22 04/14/18 07:22 Intake & Output 04/13/18 04/14/18 04/15/18 06:59 06:59 06:59 Intake Total 405 2708.0 207.0 Balance 405 2708.0 207.0 - Abdomen Description: Soft Hernia Present: No Fundal Description: Firm, Midline Fundal Height: u/u - u/2 - Abdominal Distension: No distension Tenderness: Nontender - Extremities Lower extremities: Karla's sign - neg Calf: Normal, Nontender Objective-Diagnostic Laboratory: 04/14/18 06:47 04/11/18 23:12 04/13/18 04/14/18 14:11 06:47 WBC 23.3 H D RBC 4.17 Hgb 10.7 L Hct 32.6 L MCV 78 L MCH 25.6 L MCHC 32.8 RDW 17.0 H Plt Count 156 Carbonic Acid 1.68 H HCO3/H2CO3 Ratio 13:1 ABG pH 7.21 L ABG pCO2 55.9 H ABG pO2 15.9 L* ABG HCO3 22.1 ABG O2 Saturation 15.7 L ABG Base Excess -6.4 FiO2 CORDGAS Assessment and Plan(PN) - Assessment and Plan (1) Chorioamnionitis Is this a current diagnosis for this admission?: Yes (2) Gestational hypertension Is this a current diagnosis for this admission?: Yes (3) Normal vaginal delivery Is this a current diagnosis for this admission?: Yes - Time Spent with Patient Time with patient: Less than 15 minutes - Disposition Anticipated Discharge: Home Within: within 48 hours
[2018-04-15] MEDS: ACETAMINOPHEN WITH CODEINE #3 TABLET PO PRN (01:24)
[2018-04-15] MEDS: GENTAMICIN SULFATE 140 MG in DEXTROSE 5%-WATER 100 ML IV SCH ×3 (01:56→17:32)
[2018-04-15] MEDS: AMPICILLIN SODIUM 2 GM in NORMAL SALINE 100 ML IV SCH ×3 (05:41→17:32)
[2018-04-15] MEDS: IBUPROFEN 800 MG TABLET PO SCH ×2 (05:41→14:00)
[2018-04-15 08:23] LABS: ABSOLUTE EOSINOPHILS # (AUTO) 0.2 10^3/uL (0.0-0.6); ABSOLUTE MONOCYTES (AUTO) 0.9 10^3/uL (0.1-1.4); ABSOLUTE NEUT (AUTO) 8.7 10^3/uL (1.7-8.2); BASOPHILS % (AUTO) 0.3 % (0-2); EOSINOPHILS % (AUTO) 1.4 % (0-6); HEMATOCRIT 29.4 % (36.0-47.0); HEMOGLOBIN 9.7 g/dL (12.0-15.5); LYMPHOCYTES % (AUTO) 17.3 % (13-45); MEAN CORPUSCULAR HEMOGLOBIN 25.9 pg (27.0-33.4); MEAN CORPUSCULAR HGB CONC 32.8 g/dL (32.0-36.0); MEAN CORPUSCULAR VOLUME 79 fl (80-97); MONOCYTES % (AUTO) 7.3 % (3-13); PLATELET COUNT 154 10^3/uL (150-450); RED BLOOD COUNT 3.73 10^6/uL (3.72-5.28); RED CELL DISTRIBUTION WIDTH 17.3 % (11.5-14.0); SEGMENTED NEUTROPHILS % (AUTO) 73.7 % (42-78); TOTAL CELLS COUNTED % (AUTO) 100 %; WHITE BLOOD COUNT 11.7 10^3/uL (4.0-10.5)
[2018-04-15 08:37] VITALS: BP 130/83
[2018-04-15] MEDS: ZOLPIDEM TARTRATE 5 MG TABLET PO SCH (08:39)
[2018-04-15] MEDS: PRENATAL VITAMIN W DHA CAPSULE PO SCH (09:05)
[2018-04-15] MEDS: SENNOSIDES/DOCUSATE 8.6-50 MG 1 EACH TABLET PO SCH (09:05)
[2018-04-15] MEDS: DOCUSATE SODIUM 100 MG CAPSULE PO SCH ×2 (09:05→18:05)
[2018-04-15] MEDS: FERROUS SULFATE 325 MG TABLET PO SCH ×2 (09:05→18:05)
[2018-04-15] MEDS: FAMOTIDINE 20 MG TABLET PO SCH (09:05)
--- NOTE | 2018-04-15 09:28 | PDOC PROGRESS REPORT ---
Subjective-OB Progress Note for:: 04/15/18 Subjective: PP Dayt #2, doing well today, bottlefeeding. Afebrile x 36 hours with WBC back down to 11 this morning. Plan to d/c home today Physical Exam (OB) Vital Signs: Temp Pulse Resp BP Pulse Ox 97.8 F 77 20 130/83 H 99 04/15/18 08:49 04/15/18 08:49 04/15/18 08:49 04/15/18 08:19 04/15/18 08:49 Intake & Output 04/14/18 04/15/18 04/16/18 06:59 06:59 06:59 Intake Total 2808.0 850.5 103.5 Output Total 2 Balance 2808.0 848.5 103.5 - General General Appearance: Appears well, Alert In distress: None - PIH/Pre-Eclampsia DTR's: 1 + Clonus: Negative Headache: Absent Epigastric Pain: No Visual Changes: No - Lochia Lochia Amount: Scant < 10 ml Lochia Color: Rubra/Red - Abdomen Description: Tender, Soft, Round Hernia Present: No Fundal Description: Firm, Midline Fundal Height: u/u - u/2 - Respiratory Respiratory Status: No respiratory distress - Genitourinary Genitourinary Note: voiding - Extremities Upper extremity: Normal inspection Lower extremities: Normal inspection - Neurological Cognition: Normal Orientation: AAOx4 - Psychological Associated symptoms: Normal affect, Normal mood Objective-Diagnostic Laboratory: 04/15/18 08:09 04/11/18 23:12 04/15/18 08:09 WBC 11.7 H RBC 3.73 Hgb 9.7 L Hct 29.4 L MCV 79 L MCH 25.9 L MCHC 32.8 RDW 17.3 H Plt Count 154 Seg Neutrophils % 73.7 Lymphocytes % 17.3 Monocytes % 7.3 Eosinophils % 1.4 Basophils % 0.3 Absolute Neutrophils 8.7 H Absolute Lymphocytes 2.0 Absolute Monocytes 0.9 Absolute Eosinophils 0.2 Absolute Basophils 0.0 Assessment and Plan(PN) - Assessment and Plan (1) Chorioamnionitis Qualifiers: Fetus number: single or unspecified fetus Trimester: third trimester Qualified Code(s): O41.1230 - Chorioamnionitis, third trimester, not applicable or unspecified Is this a current diagnosis for this admission?: Yes (2) Gestational hypertension Is this a current diagnosis for this admission?: Yes (3) Normal vaginal delivery Is this a current diagnosis for this admission?: Yes - Time Spent with Patient Time with patient: Less than 15 minutes - Disposition Anticipated Discharge: Home Disposition: stable condition
--- NOTE | 2018-04-15 09:35 | PDOC DISCHARGE SUMMARY ---
Final Diagnosis Discharge Date: 04/15/18 - stable, afebrile x 24 hours - Final Diagnosis (1) Chorioamnionitis Is this a current diagnosis for this admission?: Yes (2) Gestational hypertension Is this a current diagnosis for this admission?: Yes (3) Normal vaginal delivery Is this a current diagnosis for this admission?: Yes Discharge Data - Discharge Medication Prescriptions: Ibuprofen [Motrin 800 mg Tablet] 800 mg PO Q8 PRN #48 tablet PRN Reason: Pain Scale Of 2 Home Medications: Pnv No.95/Ferrous Fum/Folic AC [ Vitamins Tablet] 1 each PO DAILY Ferrous Sulfate [Feosol 325 mg Tablet] 325 mg PO BID tablet 04/15/18 Ibuprofen [Motrin 800 mg Tablet] 800 mg PO Q8 PRN #48 tablet 04/15/18 Reason(s) for Admission: Onset of Labor, Obstetric Complications Procedures: Ultrasound Intrapartum Procedure(s): Spontaneous Vaginal Delivery - Diagnosis Test Laboratory: Temp Pulse Resp BP Pulse Ox 97.8 F 77 20 130/83 H 99 04/15/18 08:49 04/15/18 08:49 04/15/18 08:49 04/15/18 08:19 04/15/18 08:49 04/11/18 04/11/18 04/14/18 22:40 23:12 06:47 RBC 4.76 4.17 Hgb 12.2 10.7 L Hct 37.5 32.6 L Urine Opiates Screen NEGATIVE 04/15/18 08:09 RBC 3.73 Hgb 9.7 L Hct 29.4 L Urine Opiates Screen - Discharge information/Instructions Discharge Activity: Activity As Tolerated, No Lifting Over 10 Pounds, Pelvic Rest Discharge Diet: As Tolerated, Regular Disposition: HOME, SELF-CARE Follow up with: [facility] in: 1 - for a BP check, 3, Weeks
== END 2018-04-15 18:56 | disposition home or self-care (01) | DRG 774 ==
LOC: LC 22:20 → LR 22:34 → 2S 04-13 17:31
PROVIDERS: ADMIT Obstetrics & Gynecology; ATTEND Obstetrics & Gynecology
PROC: 4A1HXCZ Monitoring of Products of Conception, Cardiac Rate, External Approach (ICD-10-PCS; 2018-04-11)
PROC: 10E0XZZ Delivery of Products of Conception, External Approach (ICD-10-PCS; principal; 2018-04-13)
DX: O13.4 Gestational [pregnancy-induced] hypertension without significant proteinuria, complicating childbirth (principal); O75.2 Pyrexia during labor, not elsewhere classified; O41.1230 Chorioamnionitis, third trimester, not applicable or unspecified; O69.81X0 Labor and delivery complicated by cord around neck, without compression, not applicable or unspecified; O77.0 Labor and delivery complicated by meconium in amniotic fluid; Z3A.39 39 weeks gestation of pregnancy; Z37.0 Single live birth
CPT/HCPCS: 36415; 80053; 80307; 81001; 82570; 82803; 83615; 84156; 84550; 85025; 85027; 86592; 86850; 86900; 86901; 88307; C1758; J0290; J1580; J2370; J2590; J3010; J3490